=== PATIENT | female | born 1955 ===

== ENCOUNTER 2025-03-20 07:00 | Inpatient (IN) | payer OTHER ==
[~2025-03-20] VITALS: Ht 162.6 cm; Wt 90.7 kg
[2025-03-20] MEDS ORDERED: LIPITOR20 MG (07:35)
[2025-03-20] MEDS ORDERED: METFORMIN HCL500 MG (07:35)
[2025-03-20] MEDS ORDERED: AVAPRO150 MG PO (07:35)
[2025-03-20 08:06] LABS: URINE APPEARANCE Clear; URINE BILIRRUBIN Negative (NEGATIVE); URINE BLOOD Negative; URINE COLOR Yellow; URINE GLUCOSE Negative (NEGATIVE); URINE KETONE Negative (NEGATIVE); URINE LEUKOCYTE Negative; URINE NITRATE Negative; URINE PROTEIN Negative (NEGATIVE); URINE UROBILINOGEN 1.0 E.U./dl
[2025-03-20 08:09] LABS: URINE BACTERIA 125.9 uL (0.0-1933); URINE EPITHELIAL CELLS 11.6 uL (0.0-38.8); URINE RBC 2.3 uL (0.0-20.8); URINE WBC 3.3 uL (0.0-23.2)
[2025-03-20 08:12] LABS: URINE CAST 0.14 uL (0.0-1.40)
[2025-03-20 08:15] LABS: BASO % 0.9 % (0.1-1.2); EOS # 0.18 (0.04-0.54); EOS % 3.9 % (0.7-7.0); LYMPH # 2.11 (1.18-3.74); LYMPH % 46.2 % (19.3-53.1); MEAN PLATELET VOLUME 11.10 fl (9.4-12.4); MONO # 0.52 (0.24-0.82); MONO % 11.4 % (4.7-12.5); NEUT # 1.71 (1.56-6.13); NEUT % 37.4 % (34.0-71.1); RED CELL DISTRIBUTION WIDTH 13.1 % (11.6-14.4)
[2025-03-20 08:19] VITALS: BP 150/74
[2025-03-20 08:33] LABS: INR 1.03
[2025-03-20 08:35] LABS: ALT/SGPT 76.0 U/L (12-78); AST/SGOT 52.0 U/L (15-37); BILIRUBIN TOTAL 0.68 mg/dL (0.3-1.2); BUN CREA RATIO 29.0 (7.0-25.0); CREATININE SERUM 0.63 mg/dL (0.55-1.02); GFR 93.97; GLOBULINA 3.3 G/DL (2.4-3.5); GLUCOSE FASTING 136.0 mg/dL (65-100); OSMOLALITY SERUM 287.0 MOSM/KG (275-295)
[2025-03-27] MEDS ORDERED: KETOROLAC TROMETHAMINE 60 MG VIAL IM ONE ×2 (12:00→12:10)
[2025-03-27] MEDS ORDERED: TRANEXAMIC ACID 100MG/1ML (1000MG) AMPUL ONE ×2 (12:02→12:11)
[2025-03-27] MEDS ORDERED: ISOPROPYL ALCOHOL 30 ML OUNCE TOP ONE (12:08)
[2025-03-27] MEDS ORDERED: LIDOCAINE HCL 1%/EPINEPHRINE 20ML VIAL IJ ONE (12:11)
[2025-03-27] MEDS ORDERED: BUPIVACAINE HCL/MPF 0.5% 30ML VIAL ONE (12:11)
[2025-03-27] MEDS ORDERED: VANCOMYCIN HCL 1,000 MG VIAL ONE ×2 (12:11→13:03)
[2025-03-27] MEDS ORDERED: ONDANSETRON HCL 2 MG/ML VIAL IV PRN (12:15)
[2025-03-27] MEDS ORDERED: MORPHINE SULFATE 4 MG/ML CARTRIDGE IV SCH (13:00)
[2025-03-27] MEDS ORDERED: DEXTROSE 50 % IN WATER 0.5 G/ML DISP.SYRIN IV PRN (13:45)
[2025-03-27] MEDS ORDERED: ENALAPRILAT DIHYDRATE 1.25 MG/ML VIAL IV PRN (13:45)
[2025-03-27] MEDS ORDERED: INSULIN LISPRO 1,000 UNIT/10 ML UNITS SUBCUTANEO PRN (13:45)
[2025-03-27] MEDS ORDERED: ATORVASTATIN CALCIUM 20 MG TABLET PO SCH (17:00)
[2025-03-27 17:04] VITALS: BP 106/63
[2025-03-27] MEDS ORDERED: TRAMADOL HCL 50 MG TABLET PO SCH (18:00)
[2025-03-27] MEDS ORDERED: CEFAZOLIN SODIUM 1,000 MG VIAL IV SCH (18:00)
[2025-03-27] MEDS ORDERED: ORPHENADRINE CITRATE 100 MG TABLET PO SCH (21:00)
[2025-03-27] MEDS ORDERED: GABAPENTIN 100 MG CAPSULE PO SCH (21:00)
[2025-03-28 00:53] VITALS: BP 102/56
[2025-03-28 02:15] LABS: BASO % 0.4 % (0.1-1.2); EOS # 0.01 (0.04-0.54); EOS % 0.1 % (0.7-7.0); LYMPH # 1.50 (1.18-3.74); LYMPH % 21.4 % (19.3-53.1); MEAN PLATELET VOLUME 11.50 fl (9.4-12.4); MONO # 0.98 (0.24-0.82); NEUT # 4.47 (1.56-6.13); NEUT % 64.0 % (34.0-71.1); RED CELL DISTRIBUTION WIDTH 12.8 % (11.6-14.4)
[2025-03-28 02:16] LABS: MONO % 14.0 % (4.7-12.5)
[2025-03-28] MEDS ORDERED: RIVAROXABAN 10 MG TAB PO SCH (09:00)
[2025-03-28] MEDS ORDERED: IRBESARTAN 150 MG TABLET PO SCH (09:00)
[2025-03-28 09:23] VITALS: BP 135/69
[2025-03-28 15:02] LABS: COVID-19 AG NEGATIVE (NEGATIVE)
[2025-03-28 16:00] VITALS: BP 137/74
[2025-03-29 00:11] VITALS: BP 132/67
[2025-03-29 01:37] LABS: BASO % 0.4 % (0.1-1.2); EOS # 0.02 (0.04-0.54); EOS % 0.3 % (0.7-7.0); LYMPH # 1.61 (1.18-3.74); LYMPH % 21.3 % (19.3-53.1); MEAN PLATELET VOLUME 11.30 fl (9.4-12.4); MONO # 1.24 (0.24-0.82); MONO % 16.4 % (4.7-12.5); NEUT # 4.64 (1.56-6.13); NEUT % 61.3 % (34.0-71.1); RED CELL DISTRIBUTION WIDTH 12.9 % (11.6-14.4)
[2025-03-29 08:00] VITALS: BP 135/73
[2025-03-29] MEDS ORDERED: TRAMADOL HCL50 MG PO (11:48)
[2025-03-29] MEDS ORDERED: NORFLEX100MG PO (11:48)
[2025-03-29] MEDS ORDERED: XARELTO10 MG PO (11:48)
[2025-03-29] MEDS ORDERED: GABAPENTIN100 MG PO (11:48)
== END 2025-03-29 15:58 | DRG 470 ==
LOC: SURH 03-27 07:00 → OB/GYN 03-27 10:00 → O/R 03-27 10:00 → OB/GYN 03-27 15:33
PROVIDERS: ADMIT Orthopaedic Surgery; ATTEND Orthopaedic Surgery
PROC: 0QUF0KZ Supplement Left Patella with Nonautologous Tissue Substitute, Open Approach (ICD-10-PCS; 2025-03-27)
PROC: 0SRD0JZ Replacement of Left Knee Joint with Synthetic Substitute, Open Approach (ICD-10-PCS; principal; 2025-03-27 07:00)
DX: M17.12 Unilateral primary osteoarthritis, left knee (principal); M85.662 Other cyst of bone, left lower leg